=== PATIENT | male | born 1955 | race Caucasian/White ===

== ENCOUNTER → 2016-08-27 | Outpatient (CLI) | payer OTHER ==
--- NOTE | 2016-08-27 15:03 | KCIC ---
PROCEDURE [facility]. 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 TECHNIQUE Augustin view was obtained with upward and downward gaze. COMPARISON None. FINDINGS No radiopaque foreign body is apparent. IMPRESSION Negative for radiopaque foreign body. Electronically signed by: Lee Whitt MD (Aug 27, 2016 15:02:05)
--- NOTE | 2016-08-27 15:59 | KCIC ---
PROCEDURE MR of the right knee HISTORY Generalized knee pain and swelling for 1 week. Twisting injury. History of arthroscopic surgery. COMPARISON None available TECHNIQUE Routine multiplanar sequences are obtained. FINDINGS The medial meniscus is small in size, could indicate prior meniscectomy. Regardless, there is abnormal signal within the posterior horn, compatible with a tear. There is extrusion of medial meniscus from the joint compartment. Mild blunting of the free margin of the lateral meniscus, could be postsurgical but if there is not a corresponding history, is compatible with a small tear. Mild signal within the lateral meniscus, particularly the anterior horn. The anterior and posterior cruciate ligaments are intact. Medial collateral ligament demonstrates mild proximal scarring without acute tear. Iliotibial band unremarkable. Fibular collateral ligament, biceps femoris tendon and popliteus tendon are intact. The extensor mechanism is intact. Large joint effusion. No evidence of osteochondral loose body. 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 Mild subchondral cystic change. Moderate chondromalacia at the patellofemoral joint. Mild chondromalacia at the posterior lateral tibial plateau. No bone lesion. No acute fracture. No acute soft tissue fluid collection or Mccall cyst. IMPRESSION 1. Medial meniscal tear. 2. Mild blunting of the lateral meniscus, with some increased signal in the anterior horn. Findings could be postsurgical, but a tear is difficult to exclude. 3. Primary osteoarthritis. 4. Large joint effusion. Electronically signed by: Ric Mendosa MD (Aug 27, 2016 15:58:02)
== END | disposition home or self-care (01) ==
LOC: KCIC MRI 14:13
PROVIDERS: ATTEND Family Medicine
DX: M17.11 Unilateral primary osteoarthritis, right knee (principal); M25.461 Effusion, right knee; S83.241A Other tear of medial meniscus, current injury, right knee, initial encounter; X58.XXXA Exposure to other specified factors, initial encounter; Y93.89 Activity, other specified; Y92.89 Other specified places as the place of occurrence of the external cause; Y99.8 Other external cause status
CPT/HCPCS: 70030; 73721